=== PATIENT | male | born 1985 | race Caucasian/White ===

== ENCOUNTER → 2016-11-30 | Outpatient (REF) | payer MEDICAID | LOC: M SFHCLERA 12:28 | PROVIDERS: ATTEND Physician Assistant | DX: J02.9 Acute pharyngitis, unspecified (principal); N39.0 Urinary tract infection, site not specified ==

== ENCOUNTER → 2017-05-31 | Outpatient (REF) | payer MEDICAID | LOC: M SFHCLERA 10:25 | PROVIDERS: ATTEND Nurse Practitioner Family | DX: N50.812 Left testicular pain (principal) ==

== ENCOUNTER → 2017-07-01 | Outpatient (REF) | payer MEDICAID | LOC: M SMT 17:03 | PROVIDERS: ATTEND Nurse Practitioner Women's Health | DX: N50.819 Testicular pain, unspecified (principal) ==

== ENCOUNTER → 2022-02-25 | Outpatient (REF) | LOC: M PLAIMG 13:55 | PROVIDERS: ATTEND Internal Medicine | DX: M54.9 Dorsalgia, unspecified (principal) ==